=== PATIENT | male | born 1985 | race Caucasian/White ===

== ENCOUNTER → 2021-05-01 10:09 | Outpatient (REF) | payer OTHER, SELFPAY | LOC: ANHLAB 10:09 | PROVIDERS: PCP Internal Medicine; Visit Provider Nurse Practitioner | DX: L82.1 Other seborrheic keratosis (principal) | CPT/HCPCS: 88305 ==

== ENCOUNTER 2024-07-02 05:09 | Emergency (ER) | payer OTHER, SELFPAY ==
[2024-07-02 05:12] VITALS: BP 138/93; PULSE 63; RESP 14; TEMP 36.8; O2SAT 100
[2024-07-02 05:23] VITALS: RESP 18; O2SAT 100
[2024-07-02 05:24] VITALS: PULSE 77
--- NOTE | 2024-07-02 05:53 | ED.GENADULT ---
[facility] - General Adult General Chief complaint: Unspecified Stated complaint: neck and back pain Time Seen by Provider: 07/02/24 05:47 History of Present Illness HPI narrative: 38-year-old otherwise healthy male presenting to the emergency department for evaluation of neck and left-sided radiculopathy pain in his left arm. States he woke up with pain and tingling with a burning sensation down to his left finger tips. Pain originates from the center/base of his left neck. Denies sleeping awkwardly or any twisting/lifting injuries. 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 Denies any falls, trauma car car accidents. No chest pain shortness a breath. No back pain, no nausea vomiting. No history of cervical fusions or any cervical surgeries. Was otherwise in his normal state of health denies any weakness or sensory loss in the limb. Related Data Allergies Allergy/AdvReac Type Severity Reaction Status Date / Time erythromycin base Allergy Unknown Verified 07/02/24 05:18 Review of Systems Review of Systems: As reviewed above in HPI [facility] Surgical History Surgical History History of hernia surgery Social History Social History Smoking status: Former smoker Alcohol intake: current Substance use: never Substance use type: does not use Exam Narrative: GENERAL: [Well-appearing, well-nourished, and in no acute distress.] HEAD: [Normocephalic, atraumatic.] EYES: [PERRLA and EOMI.] ENT: Nares clear, no rhinorrhea or epistaxis. Mucous membranes moist. NECK: Supple. CHEST: [Clear to auscultation. No respiratory distress.] HEART: [Regular rate and rhythm]. No murmur heard. [Normal peripheral pulses.] ABDOMEN: [Soft, nondistended], [nontender], [No rigidity or guarding] EXTREMITIES: Normal range of motion. [No edema.] Herbarium Worker strength 5/5 bilaterally, able to make a thumbs-up sign, able to oppose each digit, able to flex and extend each major joint in the left arm. Full range of motion, no asymmetry between upper extremities. No midline tenderness. Positive Spurling's test on the left side. Positive empty can sign. SKIN: Warm, dry, no rash. NEURO: [No focal deficits]. Alert and oriented [x3.] No sensory deficits, anesthesias or weakness in the upper extremities. Ambulates with a steady gait. PSYCH: [Normal mood and affect.] Course Vital Signs Vital signs: Vital Signs Temperature 36.8 C 07/02/24 05:12 Pulse Rate 63 07/02/24 05:12 Respiratory Rate 14 07/02/24 05:12 Blood Pressure 138/93 H 07/02/24 05:12 Pulse Oximetry 100 07/02/24 05:12 Oxygen Delivery Room Air 07/02/24 05:12 Temperature 36.8 C 07/02/24 05:12 Pulse Rate 77 07/02/24 05:24 Respiratory Rate 18 07/02/24 05:23 Blood Pressure 138/93 H 07/02/24 05:12 Pulse Oximetry 100 07/02/24 05:23 Oxygen Delivery Room Air 07/02/24 05:12 Medical Decision Making [facility] Narrative Medical decision making narrative: 38-year-old otherwise healthy male presenting with left-sided cervical radiculopathy symptoms. Workup this morning with the symptoms. 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 No falls or trauma. No midline tenderness to the cervical spine. Positive Spurling's test, no weakness or sensory deficits. Reports a burning sensation similar to neuropathy going down to his fingertips left-sided with certain positions and exacerbated by twisting of his neck. Since considerations presently are for musculoskeletal spasm, cervical radiculopathy, bulging disc, less likely spinal canal stenosis or spinal cord issue given his lack of heart neurological findings. Normal 2+ radial pulses, symmetric strength. Normal vital signs. Warm extremities. EKG was obtained as well as a CT of the cervical spine. He was provided intramuscular Toradol and Decadron and re-evaluated. Patient re-evaluated and had significant improvement and resolution of his symptoms while here in the emergency department. Cervical spine CT shows no acute abnormalities, mild cervical spondylosis with some osteophytes at C5-C6 and C6-C7 consistent with symptoms of cervical radiculopathy. Given patient's symptomatic resolution and no red flag signs I believe he can safely follow up on outpatient basis and will be trialed on medications including anti-inflammatories, steroids, muscle relaxers and referred to a primary care provider for further steps, physical therapy evaluation and he was also given strict return precautions and red flag symptoms to watch out for. Medical Records Medical records reviewed: Yes I reviewed the external patient's medical records. Vital Signs Vital Signs: Vital Signs Temperature 36.8 C 07/02/24 05:12 Pulse Rate 63 07/02/24 05:12 Respiratory Rate 14 07/02/24 05:12 Blood Pressure 138/93 H 07/02/24 05:12 Pulse Oximetry 100 07/02/24 05:12 Oxygen Delivery Room Air 07/02/24 05:12 Temperature 36.8 C 07/02/24 05:12 Pulse Rate 77 07/02/24 05:24 Respiratory Rate 18 07/02/24 05:23 Blood Pressure 138/93 H 07/02/24 05:12 Pulse Oximetry 100 07/02/24 05:23 Oxygen Delivery Room Air 07/02/24 05:12 Imaging Data Attestation: I personally reviewed and interpreted this imaging study as follows: My impression: Impressions Cervical Spine CT 07/02/24 06:24 IMPRESSION: 1. No acute abnormality of the cervical spine. 2: Mild cervical spondylosis. Discharge Plan Discharge Clinical Impression: Cervical radiculopathy, Cervical osteophyte Patient Disposition: Home, Self-Care Condition: Stable Instructions: Antibiotic Form, Cervical Radiculopathy (ED), Acute Neck Pain (ED) Additional Instructions: You have some cervical spondylosis and bone spurring 8 year base of the skull on the left side consistent with was causing her symptoms. We will send you home with high-dose anti-inflammatories, steroids and muscle relaxers and refer you to a primary care provider to follow up with you. If you have any complete numbness near hand, inability to cell geneticist, dropping things or any other concerns please return to the emergency department otherwise continue the medications as prescribed and follow-up with regular doctor. Patient Language: Greek Prescriptions: New acetaminophen [Tylenol Extra Strength] 500 mg tablet 1,000 mg PO TID PRN (Reason: pain) Qty: 30 0RF ketorolac 10 mg tablet 10 mg PO Q8H PRN (Reason: pain) 5 Days Qty: 20 0RF Rx Instructions: maximum total duration of 5 days from all oral, intranasal, or parenteral formulations prednisone 50 mg tablet 50 mg PO DAILY 5 Days Qty: 5 0RF lidocaine 5 % adhesive patch,medicated 1 patch topical DAILY Qty: 15 0RF Rx Instructions: leave on most painful area for up to 12 hrs methocarbamol 750 mg tablet 750 mg PO TID PRN (Reason: pain) Qty: 20 0RF Follow-up/Referrals: Martín Dorado MD [Physician] - 1 Week (Establish PCP) Ora,Charles Eduardo MD [Non-Staff] - Time of Disposition: 06:54
[2024-07-02] MEDS: methocarbamoL 750 MG TABLET 1500 MG PO (05:57)
[2024-07-02] MEDS: KETOROLAC 30 MG/ML VIAL (*BKC) IM (05:58)
[2024-07-02] MEDS: dexAMETHasone SOD PHOS INJ 10 MG/ML 1 ML VIAL IM (05:58)
== END 2024-07-02 07:00 | disposition home or self-care (01) ==
PROVIDERS: Emergency Provider Student in an Organized Health Care Education/Training Program
DX: M54.12 Radiculopathy, cervical region (principal); M25.78 Osteophyte, vertebrae; Z87.891 Personal history of nicotine dependence; M47.812 Spondylosis without myelopathy or radiculopathy, cervical region
CPT/HCPCS: 72125; 93005; 96372; 99284; A9270; J1100; J1885